=== PATIENT | male | born 1970 | race Caucasian/White ===

== ENCOUNTER 2019-01-02 23:04 | Inpatient (IN) | payer MEDICARE, MEDICAID ==
[~2019-01-02] VITALS: Ht 177.8 cm; Wt 58.5 kg
[2019-01-02 23:34] LABS: BASOPHILS % (AUTO) 1.2 % (0.0-2.0); EOSINOPHILS % (AUTO) 1.4 % (1.0-6.0); HEMATOCRIT 38.7 % (41-53); HEMOGLOBIN 12.7 g/dL (13.5-17.5); LYMPHOCYTES # (AUTO) 1.9 K/uL (1.0-4.8); LYMPHOCYTES % (AUTO) 23.4 % (22.0-44.0); MEAN CORPUSCULAR HEMOGLOBIN 26.8 pg (26.0-34.0); MEAN CORPUSCULAR HGB CONC 32.9 G/dL (31.0-37.0); MEAN CORPUSCULAR VOLUME 82 fL (80-100); MONOCYTES # (AUTO) 0.6 K/uL (0.1-1.0); MONOCYTES % (AUTO) 8.1 % (2.0-9.0); NEUTROPHILS # (AUTO) 5.3 K/uL (1.8-7.7); NEUTROPHILS % (AUTO) 65.9 % (40.0-70.0); PLATELET COUNT (AUTO) 239 K/uL (150-450); RED BLOOD CELL COUNT(AUTO) 4.75 MIL/uL (4.50-5.90); RED CELL DISTRIBUTION WIDTH 15.6 % (11.5-14.5)
[2019-01-02 23:55] LABS: ANION GAP 9 mmol/L (8-16); CALCIUM, TOTAL 9.1 mg/dL (8.8-10.5); CARBON DIOXIDE 26 mmol/L (22-29); CHLORIDE 106 mmol/L (98-107); CREATININE 0.85 mg/dL (0.60-1.30); GLOMERULAR FILTR. RATE CALC > 60 mL/min (>60); GLUCOSE,RANDOM 111 mg/dL (70-110); POTASSIUM 3.3 mmol/L (3.5-5.1); SODIUM SERUM 141 mmol/L (136-145); UREA NITROGEN, BLOOD 14 mg/dL (7-18)
[2019-01-03 00:01] LABS: ALANINE AMINOTRANSFERASE 31 U/L (12-78); ALBUMIN 3.7 g/dL (3.4-5.0); ALKALINE PHOSPHATASE 68 U/L (46-116); ASPARTATE AMINOTRANSFERASE 134 U/L (15-37); BILIRUBIN,TOTAL 0.2 mg/dL (0.1-1.0); TOTAL PROTEIN, SERUM 7.3 g/dL (6.4-8.2)
[2019-01-03] MEDS ORDERED: POTASSIUM CHLORIDE 20 MEQ ER TABLET PO ONE (02:00)
[2019-01-03] MEDS ORDERED: PERTUSS(ACELL),DIPH,TET VAC/PF 0.5 ML VIAL IM ONE (02:00)
[2019-01-03] MEDS ORDERED: HALOPERIDOL 5 MG TABLET PO PRN (04:00)
[2019-01-03] MEDS ORDERED: ZOLPIDEM TARTRATE 10 MG TABLET PO PRN (04:00)
[2019-01-03 04:33] LABS: APPEARANCE,URINE CLEAR (CLEAR); BILIRUBIN,URINE NEGATIVE (NEGATIVE); GLUCOSE, URINE (UA) NEGATIVE (NEGATIVE); KETONES,URINE NEGATIVE (NEGATIVE); LEUKOCYTE ESTERASE ,URINE NEGATIVE (NEGATIVE); NITRATE,URINE NEGATIVE (NEGATIVE); OCCULT BLOOD,URINE NEGATIVE (NEGATIVE); PROTEIN,URINE NEGATIVE (NEGATIVE); UROBILINOGEN,URINE 0.2 mg/dL (<=1.0)
[2019-01-03 04:38] LABS: AMPHET/METH SCREEN,URINE NEGATIVE (NEGATIVE); BARBITURATE SCREEN, URINE NEGATIVE (NEGATIVE); BENZODIAZEPINES SCREEN,URINE NEGATIVE (NEGATIVE); CANNABINOID SCREEN,URINE NEGATIVE (NEGATIVE); COCAINE SCREEN,URINE NEGATIVE (NEGATIVE); METHADONE SCREEN, URINE NEGATIVE (NEGATIVE); OPIATE SCREEN,URINE NEGATIVE (NEGATIVE)
[2019-01-03 04:44] LABS: PHENCYCLIDINE SCREEN,URINE NEGATIVE (NEGATIVE)
[2019-01-03 09:28] VITALS: BP 132/80
[2019-01-03] MEDS: LORazepam 2 MG TABLET PO PRN ×2 (11:01→16:19)
[2019-01-03] MEDS ORDERED: INFLUENZA VIRUS VACCINE QVS 2019-20 (3YR+)/PF 60 MCG/0.5 ML SYRINGE IM ONE (14:00)
[2019-01-03] MEDS ORDERED: HydrOXYzine PAMOATE 50 MG CAPSULE PO PRN (14:45)
[2019-01-03] MEDS ORDERED: MAG HYDROX/AL HYDROX/SIMETH ES 30 ML SUSPENSION UDCUP PO PRN (14:45)
[2019-01-03] MEDS ORDERED: TUBERCULIN, PURIFIED PROTEIN DERIVATIVE 5 TU/0.1 ML SYRINGE ID ONE (14:45)
[2019-01-03] MEDS ORDERED: RisperiDONE 1 MG TABLET PO PRN (14:45)
[2019-01-03] MEDS ORDERED: ACETAMINOPHEN 325 MG TABLET PO PRN (14:45)
[2019-01-03] MEDS ORDERED: PROMETHAZINE HCL 25 MG TABLET PO PRN (14:45)
[2019-01-03] MEDS ORDERED: LOPERAMIDE HCL 2 MG CAPSULE PO PRN (14:45)
[2019-01-03] MEDS ORDERED: MAGNESIUM HYDROXIDE SUSPENSION 30 ML UDCUP PO PRN (14:45)
[2019-01-03] MEDS ORDERED: GuaiFENesin/D-METHORPHAN [SUGAR-FREE] 200-20MG/10 ML SYRUP UDCUP PO PRN (14:45)
[2019-01-03] MEDS: THIAMINE HCL 100 MG TABLET PO SCH (16:19)
[2019-01-03] MEDS ORDERED: HALOPERIDOL 5 MG TABLET PO SCH (17:00)
[2019-01-03] MEDS ORDERED: QUEtiapine FUMARATE 100 MG TABLET PO SCH (17:00)
[2019-01-03 17:24] VITALS: BP 110/61
[2019-01-03] MEDS: MIRTAZAPINE 15 MG TABLET PO SCH (20:14)
[2019-01-03] MEDS: DIVALPROEX SODIUM 500 MG ER TABLET PO SCH (20:14)
[2019-01-03] MEDS ORDERED: RisperiDONE 3 MG TABLET PO SCH (21:00)
[2019-01-03] MEDS ORDERED: DIVALPROEX SODIUM 500 MG ER TABLET PO SCH (21:00)
[2019-01-03] MEDS ORDERED: QUEtiapine FUMARATE 200 MG TABLET PO SCH (21:00)
[2019-01-04 05:26] VITALS: BP 125/66
[2019-01-04 08:12] VITALS: BP 107/65
[2019-01-04 08:18] LABS: HEMOGLOBIN A1C 5.3 % (4.5-6.2)
[2019-01-04 08:32] LABS: CHOL/HDL RATIO 2.4 (4.2-7.3); FREE T4 (FREE THYROXINE) 1.15 ng/dL (0.76-1.46); POTASSIUM 3.9 mmol/L (3.5-5.1); THYROID STIMULATING HORMONE 0.84 uIU/mL (0.36-3.74)
[2019-01-04] MEDS: FOLIC ACID 1 MG TABLET PO SCH (09:35)
[2019-01-04] MEDS: THIAMINE HCL 100 MG TABLET PO SCH ×2 (09:35→16:29)
[2019-01-04] MEDS: NALTREXONE HCL 50 MG TABLET PO SCH (09:35)
[2019-01-04] MEDS: MULTIVITAMINS WITH MINERALS, THERAPEUTIC TABLET PO SCH (09:37)
[2019-01-04 16:24] VITALS: BP 114/68
[2019-01-04] MEDS ORDERED: ChlorproMAZINE HCL 100 MG TABLET PO PRN (19:00)
[2019-01-04] MEDS: DIVALPROEX SODIUM 500 MG ER TABLET PO SCH (20:07)
[2019-01-04] MEDS: HALOPERIDOL 10 MG TABLET PO SCH (20:07)
[2019-01-04] MEDS: MIRTAZAPINE 15 MG TABLET PO SCH (20:08)
[2019-01-04] MEDS: DiphenhydrAMINE HCL 25 MG CAPSULE PO SCH (20:08)
[2019-01-05 06:44] VITALS: BP 127/68
[2019-01-05 08:12] VITALS: BP 109/79
[2019-01-05] MEDS: THIAMINE HCL 100 MG TABLET PO SCH ×2 (08:51→16:33)
[2019-01-05] MEDS: FOLIC ACID 1 MG TABLET PO SCH (08:51)
[2019-01-05] MEDS: MULTIVITAMINS WITH MINERALS, THERAPEUTIC TABLET PO SCH (08:51)
[2019-01-05] MEDS: NALTREXONE HCL 50 MG TABLET PO SCH (08:51)
[2019-01-05 16:23] VITALS: BP 114/79
[2019-01-05] MEDS ORDERED: ONDANSETRON HCL 4 MG TABLET PO PRN (17:30)
[2019-01-05] MEDS ORDERED: BACITRACIN 28.4 GM OINTMENT TP PRN (17:30)
[2019-01-05] MEDS ORDERED: DOCUSATE SODIUM 100 MG CAPSULE PO PRN (17:30)
[2019-01-05] MEDS ORDERED: BENZOCAINE/MENTHOL LOZENGE MM PRN (17:30)
[2019-01-05] MEDS ORDERED: LOPERAMIDE HCL 2 MG CAPSULE PO PRN (17:30)
[2019-01-05] MEDS ORDERED: MAGNESIUM HYDROXIDE SUSPENSION 30 ML UDCUP PO PRN (17:30)
[2019-01-05] MEDS ORDERED: ALBUTEROL SULFATE HFA 90 MCG/PUFF 8 GM INHALER IH PRN (17:30)
[2019-01-05] MEDS ORDERED: IBUPROFEN 600 MG TABLET PO PRN (17:30)
[2019-01-05] MEDS ORDERED: CloNIDine HCL 0.1 MG TABLET PO PRN (17:30)
[2019-01-05] MEDS ORDERED: OMEPRAZOLE 20 MG CAPSULE PO PRN (17:30)
[2019-01-05] MEDS ORDERED: PETROLATUM,WHITE 28 GM JELLY TP PRN (17:30)
[2019-01-05] MEDS: DIVALPROEX SODIUM 500 MG ER TABLET PO SCH (20:31)
[2019-01-05] MEDS: MIRTAZAPINE 15 MG TABLET PO SCH (20:31)
[2019-01-05] MEDS: DiphenhydrAMINE HCL 25 MG CAPSULE PO SCH (20:31)
[2019-01-05] MEDS: HALOPERIDOL 10 MG TABLET PO SCH (20:31)
[2019-01-06 04:28] VITALS: BP 110/68
[2019-01-06] MEDS: NALTREXONE HCL 50 MG TABLET PO SCH (08:24)
[2019-01-06] MEDS: MULTIVITAMINS WITH MINERALS, THERAPEUTIC TABLET PO SCH (08:24)
[2019-01-06] MEDS: THIAMINE HCL 100 MG TABLET PO SCH ×2 (08:24→16:33)
[2019-01-06] MEDS: FOLIC ACID 1 MG TABLET PO SCH (08:24)
[2019-01-06 08:45] VITALS: BP 108/61
[2019-01-06 16:16] VITALS: BP 118/70
[2019-01-06] MEDS: DIVALPROEX SODIUM 500 MG ER TABLET PO SCH (20:34)
[2019-01-06] MEDS: MIRTAZAPINE 15 MG TABLET PO SCH (20:35)
[2019-01-06] MEDS: DiphenhydrAMINE HCL 25 MG CAPSULE PO SCH (20:35)
[2019-01-06] MEDS ORDERED: HALOPERIDOL 10 MG TABLET PO SCH (21:00)
[2019-01-07 06:32] VITALS: BP 125/76
[2019-01-07] MEDS: THIAMINE HCL 100 MG TABLET PO SCH (08:34)
[2019-01-07] MEDS: MULTIVITAMINS WITH MINERALS, THERAPEUTIC TABLET PO SCH (08:34)
[2019-01-07] MEDS: FOLIC ACID 1 MG TABLET PO SCH (08:34)
[2019-01-07] MEDS: NALTREXONE HCL 50 MG TABLET PO SCH (08:35)
[2019-01-07 08:44] VITALS: BP 114/68
[2019-01-07] MEDS ORDERED: DIVA500T52 PO ×2 (10:29→10:35)
[2019-01-07] MEDS ORDERED: DIPH50 PO (10:29)
[2019-01-07] MEDS ORDERED: MIRT15 PO (10:29)
[2019-01-07] MEDS ORDERED: NALT50TA6 PO (10:29)
[2019-01-07] MEDS ORDERED: HALO10 PO (10:29)
== END 2019-01-07 13:30 | disposition home or self-care (01) | DRG 885 ==
LOC: EMS 23:07 → B3A 01-03 04:28 → EDBD 01-03 04:28 → B2X 01-03 10:22
PROVIDERS: ADMIT Psychiatry & Neurology Psychiatry; ATTEND Psychiatry & Neurology Psychiatry
DX: F20.0 Paranoid schizophrenia (principal); F17.210 Nicotine dependence, cigarettes, uncomplicated; F60.0 Paranoid personality disorder; G47.00 Insomnia, unspecified; I10 Essential (primary) hypertension; I95.9 Hypotension, unspecified; K21.9 Gastro-esophageal reflux disease without esophagitis; K59.00 Constipation, unspecified; Z79.899 Other long term (current) drug therapy; Z91.19 Patient's noncompliance with other medical treatment and regimen; Z56.0 Unemployment, unspecified
CPT/HCPCS: 83036; 84132; 84439; 84443; 86592; 90686; 90715; G0480

== ENCOUNTER 2019-12-12 10:47 | Inpatient (IN) | payer MEDICARE, MEDICAID ==
[~2019-12-12] VITALS: Ht 177.8 cm; Wt 59.6 kg
[~2019-12-12 10:47] MED LIST: CHOL400T56 PO; DIPH50 PO; DIVA-80 PO; HALO10 PO; MIRT-89 PO; NALT50TA PO; NALT50TA6 PO; OMEP20 PO; RISP2TAB23 PO
[2019-12-12 12:11] LABS: BASOPHILS % (AUTO) 0.7 % (0.0-2.0); EOSINOPHILS % (AUTO) 0.5 % (1.0-6.0); HEMOGLOBIN 15.6 g/dL (13.5-17.5); LYMPHOCYTES # (AUTO) 1.7 K/uL (1.0-4.8); MEAN CORPUSCULAR HEMOGLOBIN 27.9 pg (26.0-34.0); MEAN CORPUSCULAR HGB CONC 33.2 G/dL (31.0-37.0); MEAN CORPUSCULAR VOLUME 84 fL (80-100); MONOCYTES # (AUTO) 0.6 K/uL (0.1-1.0); MONOCYTES % (AUTO) 6.5 % (2.0-9.0); NEUTROPHILS # (AUTO) 6.8 K/uL (1.8-7.7); NEUTROPHILS % (AUTO) 74.3 % (40.0-70.0); PLATELET COUNT (AUTO) 361 K/uL (150-450); RED BLOOD CELL COUNT(AUTO) 5.58 MIL/uL (4.50-5.90); RED CELL DISTRIBUTION WIDTH 15.1 % (11.5-14.5)
[2019-12-12 12:46] LABS: ANION GAP 9 mmol/L (8-16); CALCIUM, TOTAL 10.4 mg/dL (8.8-10.5); CARBON DIOXIDE 27 mmol/L (22-29); CHLORIDE 101 mmol/L (98-107); CREATININE 1.07 mg/dL (0.60-1.30); GLOMERULAR FILTR. RATE CALC > 60 mL/min (>60); GLUCOSE,RANDOM 89 mg/dL (70-110); POTASSIUM 4.1 mmol/L (3.5-5.1); SODIUM SERUM 137 mmol/L (136-145); UREA NITROGEN, BLOOD 9 mg/dL (7-18)
[2019-12-12 12:52] LABS: ALANINE AMINOTRANSFERASE 18 U/L (12-78); ALBUMIN 4.8 g/dL (3.4-5.0); ALKALINE PHOSPHATASE 80 U/L (46-116); ASPARTATE AMINOTRANSFERASE 20 U/L (15-37); BILIRUBIN,TOTAL 0.6 mg/dL (0.1-1.0); TOTAL PROTEIN, SERUM 8.4 g/dL (6.4-8.2); VALPROIC ACID < 3 mcg/mL (50-100)
[2019-12-12 13:33] LABS: COVID AG,FIA SOURCE NASOPHARYNGEAL
[2019-12-12] MEDS ORDERED: PROMETHAZINE HCL 25 MG TABLET PO PRN (13:45)
[2019-12-12] MEDS ORDERED: ZOLPIDEM TARTRATE 10 MG TABLET PO PRN (13:45)
[2019-12-12] MEDS ORDERED: HALOPERIDOL 5 MG TABLET PO PRN (13:45)
[2019-12-12] MEDS ORDERED: LOPERAMIDE HCL 2 MG CAPSULE PO PRN (13:45)
[2019-12-12] MEDS ORDERED: ACETAMINOPHEN 325 MG TABLET PO PRN (13:45)
[2019-12-12] MEDS ORDERED: GuaiFENesin/D-METHORPHAN [SUGAR-FREE] 200-20MG/10 ML SYRUP UDCUP PO PRN (13:45)
[2019-12-12] MEDS ORDERED: HydrOXYzine PAMOATE 50 MG CAPSULE PO PRN (13:45)
[2019-12-12] MEDS ORDERED: MAG HYDROX/AL HYDROX/SIMETH ES 30 ML SUSPENSION UDCUP PO PRN (13:45)
[2019-12-12] MEDS ORDERED: MAGNESIUM HYDROXIDE SUSPENSION 30 ML UDCUP PO PRN (13:45)
[2019-12-12 14:32] LABS: AMPHET/METH SCREEN,URINE NEGATIVE (NEGATIVE); BARBITURATE SCREEN, URINE NEGATIVE (NEGATIVE); BENZODIAZEPINES SCREEN,URINE NEGATIVE (NEGATIVE); CANNABINOID SCREEN,URINE NEGATIVE (NEGATIVE); COCAINE SCREEN,URINE NEGATIVE (NEGATIVE); METHADONE SCREEN, URINE NEGATIVE (NEGATIVE); OPIATE SCREEN,URINE NEGATIVE (NEGATIVE)
[2019-12-12 14:34] LABS: PHENCYCLIDINE SCREEN,URINE NEGATIVE (NEGATIVE)
[2019-12-12 18:24] VITALS: BP 120/90
[2019-12-12] MEDS ORDERED: INFLUENZA VIRUS VACCINE QVS 2020-21 (6MO+)/PF 60 MCG/0.5 ML SYRINGE IM ONE (19:00)
[2019-12-12] MEDS: THIAMINE 100 MG TABLET PO SCH (20:00)
[2019-12-12] MEDS ORDERED: HALOPERIDOL 10 MG TABLET PO SCH (21:00)
[2019-12-12] MEDS: DIVALPROEX SODIUM 500 MG ER TABLET PO SCH (21:29)
[2019-12-12] MEDS: MIRTAZAPINE 15 MG TABLET PO SCH (21:30)
[2019-12-13 03:25] VITALS: BP 122/84
[2019-12-13 08:39] LABS: HEMOGLOBIN A1C 5.1 % (3.8-5.6)
[2019-12-13] MEDS: OMEGA-3/DHA/EPA/FISH OIL 1,000 MG CAPSULE PO SCH (08:45)
[2019-12-13] MEDS: MULTIVITAMINS WITH MINERALS, THERAPEUTIC TABLET PO SCH (08:45)
[2019-12-13] MEDS: FOLIC ACID 1 MG TABLET PO SCH (08:45)
[2019-12-13] MEDS: THIAMINE 100 MG TABLET PO SCH ×2 (08:45→16:35)
[2019-12-13] MEDS: NALTREXONE HCL 50 MG TABLET PO SCH (08:45)
[2019-12-13 08:54] LABS: CHOL/HDL RATIO 2.5 (4.2-7.3); FREE T4 (FREE THYROXINE) 1.34 ng/dL (0.76-1.46); THYROID STIMULATING HORMONE 0.55 uIU/mL (0.36-3.74)
[2019-12-13 12:58] VITALS: BP 117/65
[2019-12-13 16:15] VITALS: BP 104/60
[2019-12-13] MEDS: HALOPERIDOL 10 MG TABLET PO SCH (20:50)
[2019-12-13] MEDS: DIVALPROEX SODIUM 500 MG ER TABLET PO SCH (20:50)
[2019-12-13] MEDS: MIRTAZAPINE 15 MG TABLET PO SCH (21:23)
[2019-12-14 08:00] VITALS: BP 106/66
[2019-12-14] MEDS: OMEGA-3/DHA/EPA/FISH OIL 1,000 MG CAPSULE PO SCH (09:21)
[2019-12-14] MEDS: FOLIC ACID 1 MG TABLET PO SCH (09:21)
[2019-12-14] MEDS: NALTREXONE HCL 50 MG TABLET PO SCH (09:21)
[2019-12-14] MEDS: THIAMINE 100 MG TABLET PO SCH ×2 (09:21→16:26)
[2019-12-14] MEDS: MULTIVITAMINS WITH MINERALS, THERAPEUTIC TABLET PO SCH (09:21)
[2019-12-14 16:02] VITALS: BP 102/64
[2019-12-14] MEDS: LORazepam 2 MG TABLET PO PRN (17:16)
[2019-12-14] MEDS: HALOPERIDOL 10 MG TABLET PO SCH (20:50)
[2019-12-14] MEDS: MIRTAZAPINE 15 MG TABLET PO SCH (20:50)
[2019-12-14] MEDS: DIVALPROEX SODIUM 500 MG ER TABLET PO SCH (20:50)
[2019-12-15 04:07] VITALS: BP 110/64
[2019-12-15 08:09] VITALS: BP 106/62
[2019-12-15] MEDS: FOLIC ACID 1 MG TABLET PO SCH (08:15)
[2019-12-15] MEDS: NALTREXONE HCL 50 MG TABLET PO SCH (08:15)
[2019-12-15] MEDS: OMEGA-3/DHA/EPA/FISH OIL 1,000 MG CAPSULE PO SCH (08:15)
[2019-12-15] MEDS: MULTIVITAMINS WITH MINERALS, THERAPEUTIC TABLET PO SCH (08:15)
[2019-12-15] MEDS: THIAMINE 100 MG TABLET PO SCH ×2 (08:15→16:49)
[2019-12-15] MEDS ORDERED: PALIPERIDONE 1.5 MG ER TABLET PO PRN (14:00)
[2019-12-15] MEDS ORDERED: PALIPERIDONE PALMITATE 234 MG/1.5 ML SYRINGE IM ONE (16:00)
[2019-12-15 16:19] VITALS: BP 108/68
[2019-12-15] MEDS: LORazepam 2 MG TABLET PO PRN (16:49)
[2019-12-15] MEDS: DIVALPROEX SODIUM 500 MG ER TABLET PO SCH (20:25)
[2019-12-15] MEDS: MIRTAZAPINE 15 MG TABLET PO SCH (20:27)
[2019-12-15] MEDS ORDERED: PALIPERIDONE 3 MG ER TABLET PO SCH (21:00)
[2019-12-16 04:10] VITALS: BP 111/63
[2019-12-16 08:25] VITALS: BP 109/65
[2019-12-16] MEDS: FOLIC ACID 1 MG TABLET PO SCH (08:35)
[2019-12-16] MEDS: MULTIVITAMINS WITH MINERALS, THERAPEUTIC TABLET PO SCH (08:35)
[2019-12-16] MEDS: NALTREXONE HCL 50 MG TABLET PO SCH (08:40)
[2019-12-16] MEDS: THIAMINE 100 MG TABLET PO SCH ×2 (08:40→16:36)
[2019-12-16] MEDS: LORazepam 2 MG TABLET PO PRN (08:40)
[2019-12-16] MEDS: OMEGA-3/DHA/EPA/FISH OIL 1,000 MG CAPSULE PO SCH (08:40)
[2019-12-16 16:14] VITALS: BP 115/73
[2019-12-16] MEDS: MIRTAZAPINE 15 MG TABLET PO SCH (20:32)
[2019-12-16] MEDS: DIVALPROEX SODIUM 500 MG ER TABLET PO SCH (20:32)
[2019-12-17 05:30] VITALS: BP 102/63
[2019-12-17] MEDS: NALTREXONE HCL 50 MG TABLET PO SCH (08:36)
[2019-12-17] MEDS: MULTIVITAMINS WITH MINERALS, THERAPEUTIC TABLET PO SCH (08:37)
[2019-12-17] MEDS: FOLIC ACID 1 MG TABLET PO SCH (08:37)
[2019-12-17] MEDS: THIAMINE 100 MG TABLET PO SCH ×2 (08:37→19:56)
[2019-12-17] MEDS: OMEGA-3/DHA/EPA/FISH OIL 1,000 MG CAPSULE PO SCH (08:37)
[2019-12-17 08:48] VITALS: BP 114/76
[2019-12-17 16:31] VITALS: BP 112/72
[2019-12-17] MEDS: DIVALPROEX SODIUM 500 MG ER TABLET PO SCH (20:41)
[2019-12-17] MEDS: MIRTAZAPINE 15 MG TABLET PO SCH (20:42)
[2019-12-18 05:32] VITALS: BP 115/70
[2019-12-18] MEDS: OMEGA-3/DHA/EPA/FISH OIL 1,000 MG CAPSULE PO SCH (08:23)
[2019-12-18] MEDS: FOLIC ACID 1 MG TABLET PO SCH (08:23)
[2019-12-18] MEDS: THIAMINE 100 MG TABLET PO SCH ×2 (08:23→17:10)
[2019-12-18] MEDS: MULTIVITAMINS WITH MINERALS, THERAPEUTIC TABLET PO SCH (08:23)
[2019-12-18] MEDS: NALTREXONE HCL 50 MG TABLET PO SCH (08:23)
[2019-12-18 08:42] VITALS: BP 106/60
[2019-12-18 16:28] VITALS: BP 129/77
[2019-12-18] MEDS: MIRTAZAPINE 15 MG TABLET PO SCH (21:03)
[2019-12-18] MEDS: DIVALPROEX SODIUM 500 MG ER TABLET PO SCH (21:03)
[2019-12-19 00:33] VITALS: BP 112/73
[2019-12-19 08:09] VITALS: BP 119/78
[2019-12-19] MEDS: OMEGA-3/DHA/EPA/FISH OIL 1,000 MG CAPSULE PO SCH (08:47)
[2019-12-19] MEDS: FOLIC ACID 1 MG TABLET PO SCH (08:47)
[2019-12-19] MEDS: MULTIVITAMINS WITH MINERALS, THERAPEUTIC TABLET PO SCH (08:47)
[2019-12-19] MEDS: THIAMINE 100 MG TABLET PO SCH ×2 (08:47→16:07)
[2019-12-19] MEDS: NALTREXONE HCL 50 MG TABLET PO SCH (08:47)
[2019-12-19] MEDS ORDERED: PALIPERIDONE PALMITATE 156 MG/ML SYRINGE IM ONE (09:00)
[2019-12-19 16:04] VITALS: BP 117/70
[2019-12-19] MEDS: DIVALPROEX SODIUM 500 MG ER TABLET PO SCH (20:14)
[2019-12-19] MEDS: MIRTAZAPINE 15 MG TABLET PO SCH (20:14)
[2019-12-20 00:18] VITALS: BP 112/74
[2019-12-20] MEDS: MULTIVITAMINS WITH MINERALS, THERAPEUTIC TABLET PO SCH (08:20)
[2019-12-20] MEDS: FOLIC ACID 1 MG TABLET PO SCH (08:20)
[2019-12-20] MEDS: NALTREXONE HCL 50 MG TABLET PO SCH (08:20)
[2019-12-20] MEDS: THIAMINE 100 MG TABLET PO SCH ×2 (08:20→16:34)
[2019-12-20] MEDS: OMEGA-3/DHA/EPA/FISH OIL 1,000 MG CAPSULE PO SCH (08:20)
[2019-12-20 08:31] VITALS: BP 107/64
[2019-12-20 16:18] VITALS: BP 112/67
[2019-12-20] MEDS: MIRTAZAPINE 15 MG TABLET PO SCH (20:31)
[2019-12-20] MEDS: DIVALPROEX SODIUM 500 MG ER TABLET PO SCH (20:31)
[2019-12-21 05:42] VITALS: BP 110/68
[2019-12-21 08:20] VITALS: BP 116/73
[2019-12-21] MEDS: NALTREXONE HCL 50 MG TABLET PO SCH (08:47)
[2019-12-21] MEDS: MULTIVITAMINS WITH MINERALS, THERAPEUTIC TABLET PO SCH (08:47)
[2019-12-21] MEDS: THIAMINE 100 MG TABLET PO SCH ×2 (08:47→16:40)
[2019-12-21] MEDS: OMEGA-3/DHA/EPA/FISH OIL 1,000 MG CAPSULE PO SCH (08:47)
[2019-12-21] MEDS: FOLIC ACID 1 MG TABLET PO SCH (08:47)
[2019-12-21 16:12] VITALS: BP 100/67
[2019-12-21] MEDS: DIVALPROEX SODIUM 500 MG ER TABLET PO SCH (20:34)
[2019-12-21] MEDS: MIRTAZAPINE 15 MG TABLET PO SCH (20:34)
[2019-12-22] MEDS: OMEGA-3/DHA/EPA/FISH OIL 1,000 MG CAPSULE PO SCH (08:13)
[2019-12-22] MEDS: NALTREXONE HCL 50 MG TABLET PO SCH (08:14)
[2019-12-22] MEDS: FOLIC ACID 1 MG TABLET PO SCH (08:14)
[2019-12-22] MEDS: THIAMINE 100 MG TABLET PO SCH (08:14)
[2019-12-22] MEDS: MULTIVITAMINS WITH MINERALS, THERAPEUTIC TABLET PO SCH (08:14)
[2019-12-22 08:17] VITALS: BP 117/63
[2019-12-22] MEDS ORDERED: OMEG-135 PO (15:39)
[2019-12-22] MEDS ORDERED: NALT50TA PO (15:39)
[2019-12-22] MEDS ORDERED: DIVA-80 PO (15:39)
[2019-12-22] MEDS ORDERED: MIRT-89 PO (15:39)
[2019-12-22] MEDS ORDERED: PALI117D IM (15:39)
[2019-12-22 16:03] VITALS: BP 104/66
[2019-12-22] MEDS: DIVALPROEX SODIUM 500 MG ER TABLET PO SCH (20:22)
[2019-12-22] MEDS: MIRTAZAPINE 15 MG TABLET PO SCH (20:24)
[2019-12-23 00:07] VITALS: BP 101/61
[2019-12-23 08:41] VITALS: BP 115/76
[2019-12-23] MEDS: NALTREXONE HCL 50 MG TABLET PO SCH (09:01)
[2019-12-23] MEDS: MULTIVITAMINS WITH MINERALS, THERAPEUTIC TABLET PO SCH (09:01)
[2019-12-23] MEDS: OMEGA-3/DHA/EPA/FISH OIL 1,000 MG CAPSULE PO SCH (09:01)
[2019-12-23] MEDS ORDERED: OMEG-135 PO (09:45)
[2019-12-23] MEDS ORDERED: PALI117D IM (09:45)
[2019-12-23 16:15] VITALS: BP 107/74
[2019-12-23] MEDS: MIRTAZAPINE 15 MG TABLET PO SCH (20:22)
[2019-12-23] MEDS: DIVALPROEX SODIUM 500 MG ER TABLET PO SCH (20:22)
[2019-12-24 05:00] VITALS: BP 110/68
[2019-12-24 07:44] LABS: COVID AG,FIA SOURCE NASAL SWAB
[2019-12-24] MEDS: OMEGA-3/DHA/EPA/FISH OIL 1,000 MG CAPSULE PO SCH (08:30)
[2019-12-24] MEDS: NALTREXONE HCL 50 MG TABLET PO SCH (08:30)
[2019-12-24] MEDS: MULTIVITAMINS WITH MINERALS, THERAPEUTIC TABLET PO SCH (08:30)
[2019-12-24 08:38] VITALS: BP 108/67
== END 2019-12-24 13:42 | disposition home or self-care (01) | DRG 885 ==
LOC: EMS 10:48 → B3A 16:11 → B2X 12-16 14:16
PROVIDERS: ADMIT Psychiatry & Neurology Psychiatry; ATTEND Psychiatry & Neurology Psychiatry
DX: F20.0 Paranoid schizophrenia (principal); G47.00 Insomnia, unspecified; K59.00 Constipation, unspecified; F17.210 Nicotine dependence, cigarettes, uncomplicated; F41.9 Anxiety disorder, unspecified; F32.9 Major depressive disorder, single episode, unspecified; F19.10 Other psychoactive substance abuse, uncomplicated; Z59.9 Problem related to housing and economic circumstances, unspecified; Z65.3 Problems related to other legal circumstances; Z91.14 Patient's other noncompliance with medication regimen; Z91.19 Patient's noncompliance with other medical treatment and regimen; Z28.21 Immunization not carried out because of patient refusal; Z79.899 Other long term (current) drug therapy; Z88.8 Allergy status to other drugs, medicaments and biological substances; Z03.818 Encounter for observation for suspected exposure to other biological agents ruled out
CPT/HCPCS: 83036; 84439; 84443; 86592; 87426; G0480

== ENCOUNTER 2021-11-18 13:47 | Emergency (ER) | payer MEDICARE, MEDICAID ==
[~2021-11-18] VITALS: Ht 177.8 cm; Wt 68.2 kg
[~2021-11-18 13:47] MED LIST changes: -DIPH50 PO; -HALO10 PO; +OMEG-135 PO; +PALI117D IM; -RISP2TAB23 PO; +RISP2TAB45 PO
[2021-11-18] MEDS ORDERED: BENZ0.5T49 PO (14:01)
[2021-11-18] MEDS ORDERED: HALO10TA21 PO (14:01)
[2021-11-18 16:13] VITALS: BP 119/88
[2021-11-18] MEDS ORDERED: SULF-261 PO (18:21)
== END 2021-11-18 18:52 | disposition home or self-care (01) ==
LOC: EMS 13:55
DX: L98.9 Disorder of the skin and subcutaneous tissue, unspecified (principal); F20.0 Paranoid schizophrenia; F31.9 Bipolar disorder, unspecified; F17.210 Nicotine dependence, cigarettes, uncomplicated; Z59.00 Homelessness unspecified; Z88.8 Allergy status to other drugs, medicaments and biological substances
CPT/HCPCS: 99283; Z7502

== ENCOUNTER 2021-12-21 14:34 | Emergency (ER) | payer MEDICARE, MEDICAID ==
[~2021-12-21] VITALS: Ht 177.8 cm; Wt 63.6 kg
[~2021-12-21 14:34] MED LIST changes: +BENZ0.5T49 PO; +HALO10TA21 PO; -NALT50TA6 PO; -RISP2TAB45 PO; +SULF-261 PO
[2021-12-21 17:06] LABS: EOSINOPHILS % (AUTO) 0.2 % (1.0-6.0); HEMATOCRIT 41.8 % (41-53); HEMOGLOBIN 13.6 g/dL (13.5-17.5); LYMPHOCYTES # (AUTO) 1.2 K/uL (1.0-4.8); LYMPHOCYTES % (AUTO) 21.5 % (22.0-44.0); MEAN CORPUSCULAR HEMOGLOBIN 25.7 pg (26.0-34.0); MEAN CORPUSCULAR HGB CONC 32.5 G/dL (31.0-37.0); MEAN CORPUSCULAR VOLUME 79 fL (80-100); MONOCYTES # (AUTO) 0.8 K/uL (0.1-1.0); MONOCYTES % (AUTO) 15.2 % (2.0-9.0); NEUTROPHILS # (AUTO) 3.5 K/uL (1.8-7.7); NEUTROPHILS % (AUTO) 62.1 % (40.0-70.0); PLATELET COUNT (AUTO) 341 K/uL (150-450); RED BLOOD CELL COUNT(AUTO) 5.27 MIL/uL (4.50-5.90); RED CELL DISTRIBUTION WIDTH 17.5 % (11.5-14.5)
[2021-12-21] MEDS ORDERED: HALOPERIDOL 5 MG TABLET PO ONE (17:15)
[2021-12-21] MEDS ORDERED: LORazepam 2 MG TABLET PO ONE (17:15)
[2021-12-21 17:24] LABS: ANION GAP 7 mmol/L (8-16); CALCIUM, TOTAL 9.2 mg/dL (8.8-10.5); CARBON DIOXIDE 29 mmol/L (22-29); CHLORIDE 98 mmol/L (98-107); GLUCOSE,RANDOM 98 mg/dL (70-110); POTASSIUM 3.8 mmol/L (3.5-5.1); SODIUM SERUM 134 mmol/L (136-145); UREA NITROGEN, BLOOD 3 mg/dL (7-18)
[2021-12-21 17:25] LABS: GLOMERULAR FILTR. RATE CALC > 60 mL/min (>60)
[2021-12-21 17:30] LABS: ALANINE AMINOTRANSFERASE 18 U/L (12-78); ALBUMIN 3.6 g/dL (3.4-5.0); ALKALINE PHOSPHATASE 104 U/L (46-116); ASPARTATE AMINOTRANSFERASE 16 U/L (15-37); BILIRUBIN,TOTAL 0.3 mg/dL (0.1-1.0); TOTAL PROTEIN, SERUM 7.9 g/dL (6.4-8.2)
[2021-12-21 18:58] VITALS: BP 119/78
== END 2021-12-21 19:06 | disposition home or self-care (01) ==
LOC: EMS 14:40
DX: F20.9 Schizophrenia, unspecified (principal); F31.9 Bipolar disorder, unspecified; F17.210 Nicotine dependence, cigarettes, uncomplicated; Z59.00 Homelessness unspecified; Z88.8 Allergy status to other drugs, medicaments and biological substances
CPT/HCPCS: 99284; 80053; 85025; 36415; G0480